=== PATIENT | male | born 1975 | race African-American/Black ===

== ENCOUNTER 2020-11-24 14:33 | Emergency (ER) | payer OTHER ==
[2020-11-24] MEDS ORDERED: Furosemide 40 MG/4 ML VIAL ONE (16:49)
[2020-11-24] MEDS ORDERED: Aspirin Chewable 81 MG TAB ONE (16:49)
[2020-11-24 17:29] LABS: #Eosinphils 0.1 10x3/uL (0.0-0.5); #Monocytes 0.6 10x3/uL (0.0-1.1); #Neutrophils 2.4 10x3/uL (1.5-8.4); %Basophils 0.4 % (0.0-2.0); %Eosinophils 2.6 % (0.0-6.0); %Monocytes 11.7 % (0.0-10.0); %Neutrophils 47.9 % (40.0-75.0); Hemoglobin 13.1 g/dL (13.5-17.5); Mean Corpuscular Hemoglobin 27.8 pg (27.0-33.0); Mean Platelet Volume 10.2 fl (7.4-10.4); Platelet Count 180 10x3/uL (150-450); RBC Distribution Width 12.5 % (11.5-14.5); Red Blood Cell (RBC) Count 4.71 10x6/uL (4.32-5.72)
[2020-11-24 17:44] LABS: ALT (SGPT) 16 U/L (8-55); AST (SGOT) 16 U/L (5-34); Albumin 2.1 g/dL (3.5-5.0); Alkaline Phosphatase 80 U/L (40-110); Anion Gap 9 mmol/L (10-20); BUN (Urea Nitrogen) 11 mg/dL (8.9-20.6); Bilirubin, Total 0.1 mg/dL (0.2-1.2); CK (CPK) 153 U/L (30-200); Calc. Creatinine Clearance 0 mL/min (70-130); Carbon Dioxide 24 mmol/L (22-29); Chloride 110 mmol/L (98-107); Globulin 3.8 g/dL (2.4-3.5); Glucose 85 mg/dL (70-105); Potassium 4.1 mmol/L (3.5-5.1); Protein, Total 5.9 g/dL (6.0-8.3); Sodium 139 mmol/L (136-145)
[2020-11-24] MEDS ORDERED: Ketorolac Tromethamine 30 MG/ML VIAL ONE (18:05)
== END 2020-11-24 18:11 ==
LOC: CSHERS 14:33
DX: R60.0 Localized edema (principal); E03.9 Hypothyroidism, unspecified; E78.5 Hyperlipidemia, unspecified; I10 Essential (primary) hypertension; Z87.891 Personal history of nicotine dependence; Z79.82 Long term (current) use of aspirin; Z79.899 Other long term (current) drug therapy
CPT/HCPCS: 71045; 80053; 82550; 83880; 84484; 85025; 93005; 93970; 96374; 96375; J1885; J1940

== ENCOUNTER 2020-12-10 03:27 | Observation (INO) | payer OTHER ==
[2020-12-10 04:12] LABS: #Eosinphils 0.1 10x3/uL (0.0-0.5); #Monocytes 0.4 10x3/uL (0.0-1.1); #Neutrophils 3.3 10x3/uL (1.5-8.4); %Basophils 0.4 % (0.0-2.0); %Lymphocytes 24.7 % (18.0-47.0); %Monocytes 7.4 % (0.0-10.0); %Neutrophils 65.3 % (40.0-75.0); Hemoglobin 13.6 g/dL (13.5-17.5); Mean Corpuscular HGB CONC 31.3 g/dL (32.0-36.0); Mean Corpuscular Hemoglobin 27.8 pg (27.0-33.0); Mean Corpuscular Volume 88.8 fl (81.2-95.1); Mean Platelet Volume 11.6 fl (7.4-10.4); Platelet Count 171 10x3/uL (150-450); Red Blood Cell (RBC) Count 4.89 10x6/uL (4.32-5.72)
[2020-12-10 04:19] LABS: ALT (SGPT) 10 U/L (8-55); AST (SGOT) 12 U/L (5-34); Albumin 2.1 g/dL (3.5-5.0); Alkaline Phosphatase 82 U/L (40-110); Anion Gap 12 mmol/L (10-20); BUN (Urea Nitrogen) 8 mg/dL (8.9-20.6); Bilirubin, Total 0.1 mg/dL (0.2-1.2); Calc. Creatinine Clearance 0 mL/min (70-130); Calcium 8.2 mg/dL (7.8-10.44); Carbon Dioxide 25 mmol/L (22-29); Chloride 108 mmol/L (98-107); Globulin 3.8 g/dL (2.4-3.5); Glucose 100 mg/dL (70-105); Potassium 4.8 mmol/L (3.5-5.1); Protein, Total 5.9 g/dL (6.0-8.3); Sodium 140 mmol/L (136-145)
[2020-12-10 04:49] LABS: INR-International Normal Ratio 1.4; PTT 26.6 sec (22.0-33.0); Prothrombin Time 14.9 sec (9.5-12.1)
[2020-12-10] MEDS ORDERED: Acetaminophen 500 MG TAB ONE (07:35)
[2020-12-10] MEDS ORDERED: Ondansetron ODT 4 MG TAB PO PRN (13:37)
[2020-12-10 15:55] VITALS: BMI 35.3
[2020-12-10] MEDS ORDERED: Atorvastatin Calcium 20 MG TAB PO SCH (21:00)
[2020-12-10] MEDS ORDERED: ENOXAPARIN SODIUM 150 MG/ML SQ SCH (21:00)
[2020-12-10] MEDS: levETIRAcetam 500 MG TAB PO SCH (21:42)
[2020-12-10] MEDS: Atorvastatin Calcium 40 MG TAB PO SCH (21:42)
[2020-12-10] MEDS: Famotidine 20 MG TAB PO SCH (21:42)
[2020-12-10] MEDS: Docusate 100 MG CAP PO SCH (21:42)
[2020-12-10] MEDS ORDERED: Enoxaparin Sodium 120 MG/0.8 ML SYRINGE SC SCH (23:59)
[2020-12-10] MEDS ORDERED: Furosemide 20 MG/2 ML VIAL SLOW IVP SCH (23:59)
[2020-12-11 07:14] LABS: #Eosinphils 0.1 10x3/uL (0.0-0.5); #Monocytes 0.4 10x3/uL (0.0-1.1); #Neutrophils 2.3 10x3/uL (1.5-8.4); %Basophils 0.2 % (0.0-2.0); %Eosinophils 2.5 % (0.0-6.0); %Lymphocytes 35.8 % (18.0-47.0); %Monocytes 8.8 % (0.0-10.0); %Neutrophils 52.2 % (40.0-75.0); Hemoglobin 13.4 g/dL (13.5-17.5); Mean Corpuscular HGB CONC 31.3 g/dL (32.0-36.0); Mean Corpuscular Hemoglobin 27.5 pg (27.0-33.0); Mean Corpuscular Volume 87.9 fl (81.2-95.1); Mean Platelet Volume 11.6 fl (7.4-10.4); Platelet Count 135 10x3/uL (150-450); Red Blood Cell (RBC) Count 4.87 10x6/uL (4.32-5.72); White Blood Cell (WBC) Count 4.3 10x3/uL (3.5-10.5)
[2020-12-11 07:42] LABS: Anion Gap 13 mmol/L (10-20); BUN (Urea Nitrogen) 13 mg/dL (8.9-20.6); Calc. Creatinine Clearance 139 mL/min (70-130); Calcium 8.2 mg/dL (7.8-10.44); Carbon Dioxide 22 mmol/L (22-29); Cardiac Risk 4.1 (Less than 4.5); Chloride 108 mmol/L (98-107); Cholesterol 229 mg/dl (< 200 Desired); Glucose 101 mg/dL (70-105); HDL Cholesterol 56 mg/dL (>60 Neg Risk); LDL Cholesterol, Calculated 154 mg/dL; Potassium 4.2 mmol/L (3.5-5.1); Sodium 139 mmol/L (136-145); Triglycerides 93 mg/dL (Less than 150)
[2020-12-11] MEDS ORDERED: Enoxaparin Sodium 40 MG/0.4 ML SYRINGE SC SCH (09:00)
[2020-12-11] MEDS: Docusate 100 MG CAP PO SCH ×2 (10:01→21:37)
[2020-12-11] MEDS: Famotidine 20 MG TAB PO SCH ×2 (10:01→21:37)
[2020-12-11] MEDS: levETIRAcetam 500 MG TAB PO SCH ×2 (10:01→21:37)
[2020-12-11] MEDS: Enoxaparin Sodium 120 MG/0.8 ML SYRINGE SC SCH ×2 (10:02→22:33)
[2020-12-11] MEDS: Acetaminophen 325 MG TAB PO PRN (10:02)
[2020-12-11] MEDS: Aspirin 81 mg Enteric Coated Tablet PO SCH (10:02)
[2020-12-11 13:57] LABS: SARS-CoV-2 PCR by NAA DETECTED (NotDetected)
[2020-12-11 14:16] LABS: Hemoglobin A1c 6.3 % (4.0-6.0)
[2020-12-11] MEDS: Atorvastatin Calcium 40 MG TAB PO SCH (21:37)
[2020-12-12] MEDS: Acetaminophen 325 MG TAB PO PRN (06:13)
[2020-12-12] MEDS: Enoxaparin Sodium 120 MG/0.8 ML SYRINGE SC SCH (09:20)
[2020-12-12] MEDS: Famotidine 20 MG TAB PO SCH (09:21)
[2020-12-12] MEDS: Aspirin 81 mg Enteric Coated Tablet PO SCH (09:21)
[2020-12-12] MEDS: Docusate 100 MG CAP PO SCH (09:21)
[2020-12-12] MEDS: levETIRAcetam 500 MG TAB PO SCH (09:21)
[2020-12-12 14:52] VITALS: BP 120/78; TEMP 97.6
== END 2020-12-12 12:15 ==
LOC: CSHERS 03:27 → CSHTELE 13:37 → UNDOADMOB 14:34 → CSHTELE 14:34 → INTOOBSV 14:34
PROVIDERS: ADMIT Family Medicine; ATTEND Family Medicine
DX: I69.934 Monoplegia of upper limb following unspecified cerebrovascular disease affecting left non-dominant side (principal); U07.1 COVID-19; G40.909 Epilepsy, unspecified, not intractable, without status epilepticus; Z86.711 Personal history of pulmonary embolism; Z86.718 Personal history of other venous thrombosis and embolism; Z79.899 Other long term (current) drug therapy; Z79.01 Long term (current) use of anticoagulants
CPT/HCPCS: 36415; 36416; 70450; 70551; 71045; 80048; 80053; 80061; 83036; 83880; 84443; 84484; 85025; 85610; 85730; 87635; 93005; 93306; 93880; 96372; 96374; G0378; J1650; J1940; U0003; U0005

== ENCOUNTER 2021-06-19 15:54 | Inpatient (IN) | payer OTHER ==
[2021-06-19] MEDS ORDERED: Ondansetron PF 4 MG/2 ML Vial ONE (16:21)
[2021-06-19 16:38] LABS: #Eosinphils 0.2 10x3/uL (0.0-0.5); #Monocytes 0.3 10x3/uL (0.0-1.1); #Neutrophils 1.8 10x3/uL (1.5-8.4); %Basophils 0.6 % (0.0-2.0); %Eosinophils 5.5 % (0.0-6.0); %Lymphocytes 31.8 % (18.0-47.0); %Monocytes 8.8 % (0.0-10.0); Mean Corpuscular HGB CONC 30.8 g/dL (32.0-36.0); Mean Corpuscular Hemoglobin 27.7 pg (27.0-33.0); Mean Corpuscular Volume 90.1 fl (81.2-95.1); Mean Platelet Volume 11.9 fl (7.4-10.4); Platelet Count 182 10x3/uL (150-450); RBC Distribution Width 13.6 % (11.5-14.5); Red Blood Cell (RBC) Count 5.05 10x6/uL (4.32-5.72); White Blood Cell (WBC) Count 3.3 10x3/uL (3.5-10.5)
[2021-06-19 16:53] LABS: ALT (SGPT) 36 U/L (8-55); AST (SGOT) 66 U/L (5-34); Albumin 2.7 g/dL (3.5-5.0); Alkaline Phosphatase 86 U/L (40-110); Anion Gap 10 mmol/L (10-20); BUN (Urea Nitrogen) 12 mg/dL (8.9-20.6); Bilirubin, Total 0.2 mg/dL (0.2-1.2); Calc. Creatinine Clearance 0 mL/min (70-130); Calcium 8.5 mg/dL (7.8-10.44); Carbon Dioxide 26 mmol/L (22-29); Chloride 106 mmol/L (98-107); Globulin 4.4 g/dL (2.4-3.5); Glucose 83 mg/dL (70-105); Potassium 4.2 mmol/L (3.5-5.1); Protein, Total 7.1 g/dL (6.0-8.3); Sodium 138 mmol/L (136-145)
[2021-06-19 16:57] LABS: PTT 37.9 sec (22.0-33.0); Prothrombin Time 46.3 sec (9.5-12.1)
[2021-06-19 17:00] LABS: INR-International Normal Ratio 4.5
[2021-06-19 22:20] LABS: SARS-CoV-2 NAA Rapid Test Not Detected (NotDetected)
[2021-06-19] MEDS ORDERED: Senokot S 8.6-50 MG TAB PO PRN (23:13)
[2021-06-19] MEDS ORDERED: hydrALAZINE 20 MG/ML VIAL SLOW IVP PRN (23:13)
[2021-06-19] MEDS ORDERED: Ondansetron PF 4 MG/2 ML Vial IVP PRN (23:13)
[2021-06-19] MEDS ORDERED: Acetaminophen 325 MG TAB PO PRN (23:13)
[2021-06-19] MEDS ORDERED: Calcium Carbonate 500 MG ChewTAB PO PRN (23:13)
[2021-06-19] MEDS ORDERED: levETIRAcetam 500 MG TAB PO SCH (23:30)
[2021-06-20 00:39] VITALS: BMI 38.0
[2021-06-20 04:42] LABS: #Eosinphils 0.2 10x3/uL (0.0-0.5); #Monocytes 0.4 10x3/uL (0.0-1.1); #Neutrophils 1.8 10x3/uL (1.5-8.4); %Basophils 0.3 % (0.0-2.0); %Eosinophils 4.9 % (0.0-6.0); %Lymphocytes 33.7 % (18.0-47.0); %Monocytes 10.9 % (0.0-10.0); %Neutrophils 49.9 % (40.0-75.0); Hemoglobin 12.9 g/dL (13.5-17.5); Mean Corpuscular HGB CONC 31.7 g/dL (32.0-36.0); Mean Corpuscular Hemoglobin 27.9 pg (27.0-33.0); Mean Corpuscular Volume 88.1 fl (81.2-95.1); Mean Platelet Volume 11.6 fl (7.4-10.4); Platelet Count 184 10x3/uL (150-450); RBC Distribution Width 13.7 % (11.5-14.5); Red Blood Cell (RBC) Count 4.62 10x6/uL (4.32-5.72); White Blood Cell (WBC) Count 3.7 10x3/uL (3.5-10.5)
[2021-06-20 05:01] LABS: Anion Gap 12 mmol/L (10-20); BUN (Urea Nitrogen) 14 mg/dL (8.9-20.6); Calc. Creatinine Clearance 130 mL/min (70-130); Calcium 8.3 mg/dL (7.8-10.44); Carbon Dioxide 23 mmol/L (22-29); Chloride 109 mmol/L (98-107); Cholesterol 165 mg/dl (< 200 Desired); Glucose 99 mg/dL (70-105); HDL Cholesterol 33 mg/dL (>60 Neg Risk); LDL Cholesterol, Calculated 97 mg/dL; Potassium 4.1 mmol/L (3.5-5.1); Sodium 140 mmol/L (136-145); Triglycerides 177 mg/dL (Less than 150)
[2021-06-20 05:07] LABS: Prothrombin Time 44.2 sec (9.5-12.1)
[2021-06-20 05:15] LABS: INR-International Normal Ratio 4.3
[2021-06-20] MEDS: Clopidogrel Bisulfate 75 MG TAB PO SCH (08:35)
[2021-06-20] MEDS: Furosemide 40 MG TAB PO SCH (08:35)
[2021-06-20] MEDS: Docusate 100 MG CAP PO SCH ×2 (08:35→20:08)
[2021-06-20] MEDS: levETIRAcetam 500 MG TAB PO SCH ×2 (08:35→20:08)
[2021-06-20] MEDS: Famotidine 20 MG TAB PO SCH ×2 (08:35→20:08)
[2021-06-20 15:47] LABS: INR-International Normal Ratio 2.9; PTT 36.9 sec (22.0-33.0); Prothrombin Time 30.4 sec (9.5-12.1)
[2021-06-20] MEDS ORDERED: Atorvastatin Calcium 40 MG TAB PO SCH ×2 (21:00)
[2021-06-21] MEDS: Furosemide 40 MG TAB PO SCH (08:26)
[2021-06-21] MEDS: Clopidogrel Bisulfate 75 MG TAB PO SCH (08:26)
[2021-06-21] MEDS: Docusate 100 MG CAP PO SCH (08:26)
[2021-06-21] MEDS: levETIRAcetam 500 MG TAB PO SCH (08:26)
[2021-06-21] MEDS: Famotidine 20 MG TAB PO SCH (08:26)
[2021-06-21] MEDS ORDERED: Aspirin 81 mg Enteric Coated Tablet PO SCH (09:00)
[2021-06-21 12:36] VITALS: BP 150/71; TEMP 97.5
== END 2021-06-21 17:30 | disposition home or self-care (01) | DRG 948 ==
LOC: CSHERS 15:54 → CSHTELE 15:55 → OBSVTOIN 06-20 18:44
PROVIDERS: ADMIT Student in an Organized Health Care Education/Training Program; ATTEND Internal Medicine
DX: R53.1 Weakness (principal); I69.954 Hemiplegia and hemiparesis following unspecified cerebrovascular disease affecting left non-dominant side; E78.2 Mixed hyperlipidemia; Z20.822 Contact with and (suspected) exposure to COVID-19; Z86.711 Personal history of pulmonary embolism; Z86.718 Personal history of other venous thrombosis and embolism; Z91.010 Allergy to peanuts; Z79.01 Long term (current) use of anticoagulants; Z79.82 Long term (current) use of aspirin; Z79.899 Other long term (current) drug therapy; G40.909 Epilepsy, unspecified, not intractable, without status epilepticus; Z83.3 Family history of diabetes mellitus; Z82.49 Family history of ischemic heart disease and other diseases of the circulatory system; Z87.891 Personal history of nicotine dependence; N18.2 Chronic kidney disease, stage 2 (mild); M79.89 Other specified soft tissue disorders
CPT/HCPCS: 36415; 70450; 70496; 70498; 70551; 80048; 80053; 80061; 84443; 84484; 85025; 85610; 85730; 86850; 86900; 86901; 93005; 93306; 93880; 96374; G0378; J2405; U0002

== ENCOUNTER 2021-08-27 11:34 | Emergency (ER) | payer OTHER ==
[2021-08-27 12:53] LABS: Hemoglobin 12.5 g/dL (13.5-17.5); MDiff Complete? YES; Mean Corpuscular HGB CONC 30.9 g/dL (32.0-36.0); Mean Corpuscular Volume 90.4 fl (81.2-95.1); Mean Platelet Volume 11.3 fl (7.4-10.4); Platelet Count 174 10x3/uL (150-450); RBC Distribution Width 13.5 % (11.5-14.5); Red Blood Cell (RBC) Count 4.47 10x6/uL (4.32-5.72); White Blood Cell (WBC) Count 3.6 10x3/uL (3.5-10.5)
[2021-08-27 12:59] LABS: INR-International Normal Ratio 1.5; PTT 26.9 sec (22.0-33.0); Prothrombin Time 15.9 sec (9.5-12.1)
[2021-08-27 13:07] LABS: ALT (SGPT) 26 U/L (8-55); AST (SGOT) 56 U/L (5-34); Alkaline Phosphatase 77 U/L (40-110); Anion Gap 10 mmol/L (10-20); BUN (Urea Nitrogen) 12 mg/dL (8.9-20.6); Bilirubin, Total 0.2 mg/dL (0.2-1.2); Calc. Creatinine Clearance 0 mL/min (70-130); Calcium 7.7 mg/dL (7.8-10.44); Carbon Dioxide 26 mmol/L (22-29); Chloride 111 mmol/L (98-107); Globulin 3.7 g/dL (2.4-3.5); Glucose 78 mg/dL (70-105); Protein, Total 5.7 g/dL (6.0-8.3); Sodium 143 mmol/L (136-145)
[2021-08-27] MEDS ORDERED: Warfarin Sodium 5 MG TAB PO SCH (13:30)
[2021-08-27 13:46] LABS: Eosinophils 2 % (0-10); Lymphocytes 37 % (21-51); Monocytes 12 % (0-10); Neutrophil 45 % (42-75); Reactive Lymphocytes 4 % (0-10)
[2021-08-27 13:47] LABS: Platelet Morphology Comment Appears Adequate
== END 2021-08-27 13:46 ==
LOC: CSHERS 11:34
DX: R79.1 Abnormal coagulation profile (principal); M79.89 Other specified soft tissue disorders; E03.9 Hypothyroidism, unspecified; E78.5 Hyperlipidemia, unspecified; I05.9 Rheumatic mitral valve disease, unspecified; I10 Essential (primary) hypertension; Z86.711 Personal history of pulmonary embolism; Z86.718 Personal history of other venous thrombosis and embolism; Z87.891 Personal history of nicotine dependence; Z79.82 Long term (current) use of aspirin; Z79.01 Long term (current) use of anticoagulants; Z79.899 Other long term (current) drug therapy
CPT/HCPCS: 80053; 85025; 85610; 85730; 99283

== ENCOUNTER 2021-12-24 05:45 | Emergency (ER) | payer OTHER ==
[2021-12-24] MEDS ORDERED: Metoprolol Tartrate 25 MG TAB ONE (06:32)
[2021-12-24 07:21] LABS: #Monocytes 0.3 10x3/uL (0.0-1.1); #Neutrophils 5.9 10x3/uL (1.5-8.4); %Basophils 0.1 % (0.0-2.0); %Eosinophils 0.4 % (0.0-6.0); %Monocytes 3.8 % (0.0-10.0); %Neutrophils 83.2 % (40.0-75.0); Hemoglobin 11.8 g/dL (13.5-17.5); Mean Corpuscular HGB CONC 31.4 g/dL (32.0-36.0); Mean Corpuscular Hemoglobin 28.7 pg (27.0-33.0); Mean Corpuscular Volume 91.5 fl (81.2-95.1); Mean Platelet Volume 9.7 fl (7.4-10.4); Platelet Count 267 10x3/uL (150-450); RBC Distribution Width 14.8 % (11.5-14.5); Red Blood Cell (RBC) Count 4.11 10x6/uL (4.32-5.72); White Blood Cell (WBC) Count 7.1 10x3/uL (3.5-10.5)
[2021-12-24 07:34] LABS: ALT (SGPT) 20 U/L (8-55); AST (SGOT) 16 U/L (5-34); Albumin 1.9 g/dL (3.5-5.0); Alkaline Phosphatase 68 U/L (40-110); Anion Gap 16 mmol/L (10-20); BUN (Urea Nitrogen) 12 mg/dL (8.9-20.6); Bilirubin, Total 0.2 mg/dL (0.2-1.2); Calc. Creatinine Clearance 0 mL/min (70-130); Calcium 7.6 mg/dL (7.8-10.44); Carbon Dioxide 22 mmol/L (22-29); Chloride 106 mmol/L (98-107); Globulin 2.2 g/dL (2.4-3.5); Glucose 176 mg/dL (70-105); INR-International Normal Ratio 0.9; PTT 20.5 sec (22.0-33.0); Potassium 4.1 mmol/L (3.5-5.1); Protein, Total 4.1 g/dL (6.0-8.3); Prothrombin Time 10.2 sec (9.5-12.1); Sodium 140 mmol/L (136-145)
[2021-12-24 08:25] LABS: SARS-CoV-2 NAA Rapid Test Not Detected (NotDetected)
[2021-12-24] MEDS ORDERED: Ondansetron PF 4 MG/2 ML Vial ONE (08:39)
[2021-12-24] MEDS ORDERED: Iopamidol 370 76% 100 ML VIAL ONE (10:24)
[2021-12-24] MEDS ORDERED: Enoxaparin Sodium 30 MG/0.3 ML SYRINGE SC SCH (15:30)
[2021-12-24] MEDS ORDERED: Enoxaparin Sodium 100 MG/ML SYRINGE SC SCH (15:30)
[2021-12-24] MEDS ORDERED: Enoxaparin Sodium 100 MG/ML SYRINGE ONE (16:00)
[2021-12-24] MEDS ORDERED: Enoxaparin Sodium 30 MG/0.3 ML SYRINGE ONE (16:00)
== END 2021-12-24 21:32 | disposition short-term general hospital (02) ==
LOC: CSHERS 05:45
DX: I82.511 Chronic embolism and thrombosis of right femoral vein (principal); I82.531 Chronic embolism and thrombosis of right popliteal vein; R60.0 Localized edema; E03.9 Hypothyroidism, unspecified; E78.5 Hyperlipidemia, unspecified; M32.14 Glomerular disease in systemic lupus erythematosus; Z20.822 Contact with and (suspected) exposure to COVID-19; Z86.711 Personal history of pulmonary embolism; Z87.891 Personal history of nicotine dependence; Z79.01 Long term (current) use of anticoagulants; Z79.899 Other long term (current) drug therapy
CPT/HCPCS: 36415; 71045; 71275; 80053; 84484; 85025; 85610; 85730; 93005; 96372; 96374; J1650; J2405; Q9967; U0002

== ENCOUNTER 2022-01-09 00:12 | Emergency (ER) | payer OTHER ==
[2022-01-09] MEDS ORDERED: Morphine 2 MG/ML VIAL ONE (01:06)
[2022-01-09 01:20] LABS: SARS-CoV-2 NAA Rapid Test Not Detected (NotDetected)
[2022-01-09 01:28] LABS: INR-International Normal Ratio 1.1; Prothrombin Time 11.7 sec (9.5-12.1)
[2022-01-09 01:33] LABS: ALT (SGPT) 21 U/L (8-55); AST (SGOT) 14 U/L (5-34); Albumin 2.1 g/dL (3.5-5.0); Alkaline Phosphatase 48 U/L (40-110); Anion Gap 14 mmol/L (10-20); BUN (Urea Nitrogen) 21 mg/dL (8.9-20.6); Bilirubin, Total 0.3 mg/dL (0.2-1.2); CK (CPK) 147 U/L (30-200); Calc. Creatinine Clearance 0 mL/min (70-130); Calcium 8.3 mg/dL (7.8-10.44); Carbon Dioxide 25 mmol/L (22-29); Chloride 103 mmol/L (98-107); Globulin 2.8 g/dL (2.4-3.5); Glucose 120 mg/dL (70-105); Potassium 3.5 mmol/L (3.5-5.1); Protein, Total 4.9 g/dL (6.0-8.3); Sodium 138 mmol/L (136-145)
[2022-01-09 01:35] LABS: #Eosinphils 0.1 10x3/uL (0.0-0.5); #Monocytes 0.8 10x3/uL (0.0-1.1); #Neutrophils 9.3 10x3/uL (1.5-8.4); %Basophils 0.2 % (0.0-2.0); %Eosinophils 0.5 % (0.0-6.0); %Lymphocytes 11.9 % (18.0-47.0); %Monocytes 6.7 % (0.0-10.0); %Neutrophils 79.7 % (40.0-75.0); Hemoglobin 11.7 g/dL (13.5-17.5); Mean Corpuscular HGB CONC 33.2 g/dL (32.0-36.0); Mean Corpuscular Hemoglobin 29.3 pg (27.0-33.0); Mean Corpuscular Volume 88.2 fl (81.2-95.1); Mean Platelet Volume 10.3 fl (7.4-10.4); Platelet Count 215 10x3/uL (150-450); RBC Distribution Width 14.4 % (11.5-14.5); Red Blood Cell (RBC) Count 3.99 10x6/uL (4.32-5.72); White Blood Cell (WBC) Count 11.7 10x3/uL (3.5-10.5)
[2022-01-09] MEDS ORDERED: Enoxaparin Sodium 60 MG/0.6 ML SYRINGE ONE (02:32)
[2022-01-09] MEDS ORDERED: Warfarin Sodium 5 MG TAB PO SCH (02:45)
[2022-01-09] MEDS ORDERED: Spironolactone 25 MG TAB PO SCH (02:45)
== END 2022-01-09 02:55 ==
LOC: CSHERS 00:12
DX: L03.116 Cellulitis of left lower limb (principal); R60.0 Localized edema; D68.8 Other specified coagulation defects; E03.9 Hypothyroidism, unspecified; E78.5 Hyperlipidemia, unspecified; Z20.822 Contact with and (suspected) exposure to COVID-19; Z87.891 Personal history of nicotine dependence; Z86.718 Personal history of other venous thrombosis and embolism; Z86.711 Personal history of pulmonary embolism; Z79.01 Long term (current) use of anticoagulants; Z79.899 Other long term (current) drug therapy
CPT/HCPCS: 36415; 71045; 80053; 82550; 83605; 83880; 84484; 85025; 85610; 93005; 96372; 96374; J1650; J2270; U0002

== ENCOUNTER 2022-01-13 17:20 | Emergency (ER) | payer OTHER ==
[2022-01-13 18:46] LABS: #Eosinphils 0.1 10x3/uL (0.0-0.5); #Monocytes 0.6 10x3/uL (0.0-1.1); #Neutrophils 11.3 10x3/uL (1.5-8.4); %Basophils 0.2 % (0.0-2.0); %Eosinophils 0.5 % (0.0-6.0); %Lymphocytes 9.3 % (18.0-47.0); %Monocytes 4.7 % (0.0-10.0); %Neutrophils 83.9 % (40.0-75.0); Hemoglobin 13.5 g/dL (13.5-17.5); Mean Corpuscular HGB CONC 31.1 g/dL (32.0-36.0); Mean Corpuscular Hemoglobin 28.6 pg (27.0-33.0); Mean Corpuscular Volume 91.9 fl (81.2-95.1); Mean Platelet Volume 10.1 fl (7.4-10.4); Platelet Count 300 10x3/uL (150-450); RBC Distribution Width 14.3 % (11.5-14.5); Red Blood Cell (RBC) Count 4.72 10x6/uL (4.32-5.72); White Blood Cell (WBC) Count 13.5 10x3/uL (3.5-10.5)
[2022-01-13 18:58] LABS: INR-International Normal Ratio 2.8; PTT 35.6 sec (22.0-33.0)
[2022-01-13 19:05] LABS: ALT (SGPT) 23 U/L (8-55); AST (SGOT) 38 U/L (5-34); Albumin 2.3 g/dL (3.5-5.0); Alkaline Phosphatase 63 U/L (40-110); Anion Gap 13 mmol/L (10-20); BUN (Urea Nitrogen) 26 mg/dL (8.9-20.6); Bilirubin, Total 0.2 mg/dL (0.2-1.2); Calc. Creatinine Clearance 0 mL/min (70-130); Calcium 8.6 mg/dL (7.8-10.44); Carbon Dioxide 25 mmol/L (22-29); Chloride 102 mmol/L (98-107); Globulin 3.9 g/dL (2.4-3.5); Glucose 108 mg/dL (70-105); Potassium 4.4 mmol/L (3.5-5.1); Protein, Total 6.2 g/dL (6.0-8.3); Sodium 136 mmol/L (136-145)
[2022-01-13] MEDS ORDERED: Cefepime 2 GM VIAL ONE (19:14)
[2022-01-13] MEDS ORDERED: Morphine 4 MG/ML VIAL ONE ×2 (19:28→21:11)
[2022-01-13 20:43] LABS: SARS-CoV-2 NAA Rapid Test Not Detected (NotDetected)
[2022-01-14] MEDS ORDERED: Morphine 4 MG/ML VIAL ONE (01:31)
[2022-01-14] MEDS ORDERED: Cefepime 2 GM VIAL ONE (01:57)
== END 2022-01-14 03:29 | disposition short-term general hospital (02) ==
LOC: EEVIPCON 17:20 → CSHERS 17:20
DX: L03.116 Cellulitis of left lower limb (principal); Z20.822 Contact with and (suspected) exposure to COVID-19; E03.9 Hypothyroidism, unspecified; E78.5 Hyperlipidemia, unspecified; Z87.891 Personal history of nicotine dependence; Z79.899 Other long term (current) drug therapy
CPT/HCPCS: 36415; 71045; 80053; 83605; 84484; 85025; 85610; 85730; 87040; 93005; 96365; 96375; 96376; J0692; J2270; J3370; U0002

== ENCOUNTER 2022-03-02 02:00 | Inpatient (IN) | payer OTHER ==
[2022-03-02] MEDS ORDERED: Cefepime 2 GM VIAL ONE (02:58)
[2022-03-02] MEDS ORDERED: Ondansetron PF 4 MG/2 ML Vial ONE ×2 (02:58→10:12)
[2022-03-02 03:10] LABS: Hemoglobin 10.7 g/dL (13.5-17.5); Mean Corpuscular HGB CONC 31.2 g/dL (32.0-36.0); Mean Corpuscular Hemoglobin 28.8 pg (27.0-33.0); Mean Corpuscular Volume 92.2 fl (81.2-95.1); Mean Platelet Volume 9.4 fl (7.4-10.4); Platelet Count 235 10x3/uL (150-450); RBC Distribution Width 14.5 % (11.5-14.5); Red Blood Cell (RBC) Count 3.72 10x6/uL (4.32-5.72); White Blood Cell (WBC) Count 7.1 10x3/uL (3.5-10.5)
[2022-03-02 03:11] LABS: MDiff Complete? YES
[2022-03-02 03:16] LABS: ALT (SGPT) 18 U/L (8-55); AST (SGOT) 15 U/L (5-34); Albumin 2.7 g/dL (3.5-5.0); Alkaline Phosphatase 94 U/L (40-110); Anion Gap 16 mmol/L (10-20); BUN (Urea Nitrogen) 18 mg/dL (8.9-20.6); Bilirubin, Total 0.3 mg/dL (0.2-1.2); Calc. Creatinine Clearance 0 mL/min (70-130); Calcium 8.4 mg/dL (7.8-10.44); Carbon Dioxide 30 mmol/L (22-29); Chloride 98 mmol/L (98-107); Estimated GFR 62; Globulin 2.6 g/dL (2.4-3.5); Glucose 176 mg/dL (70-105); Potassium 3.4 mmol/L (3.5-5.1); Protein, Total 5.3 g/dL (6.0-8.3); Sodium 141 mmol/L (136-145)
[2022-03-02 03:21] LABS: Prothrombin Time 10.9 sec (9.5-12.1)
[2022-03-02 03:32] LABS: Band 11 % (5-11); Eosinophils 1 % (0-10); Lymphocytes 25 % (21-51); Monocytes 6 % (0-10); Neutrophil 57 % (42-75)
[2022-03-02] MEDS ORDERED: Morphine 4 MG/ML VIAL ONE (03:33)
[2022-03-02 03:56] LABS: SARS-CoV-2 NAA Rapid Test Not Detected (NotDetected)
[2022-03-02] MEDS ORDERED: Enoxaparin Sodium 30 MG/0.3 ML SYRINGE ONE (04:11)
[2022-03-02] MEDS ORDERED: Enoxaparin Sodium 100 MG/ML SYRINGE ONE (04:11)
[2022-03-02] MEDS ORDERED: Promethazine HCl 25 MG/ML VIAL ONE (04:12)
[2022-03-02] MEDS ORDERED: Acetaminophen 500 MG TAB ONE (04:54)
[2022-03-02 05:36] LABS: Lactic Acid 4.9 mmol/L (0.5-2.2)
[2022-03-02] MEDS ORDERED: Ketorolac Tromethamine 30 MG/ML VIAL ONE (05:45)
[2022-03-02] MEDS ORDERED: HumaLOG 300 UNITS/3 ML VIAL SC PRN (09:11)
[2022-03-02] MEDS ORDERED: Acetaminophen 650 MG Suppository PR PRN (09:11)
[2022-03-02] MEDS ORDERED: Guaifenesin DM 100-10/5 ML UDCUP PO PRN (09:11)
[2022-03-02] MEDS ORDERED: Dextrose 50% Abboject 50 ML SYRINGE SLOW IVP PRN (09:11)
[2022-03-02] MEDS ORDERED: Dextrose 5% in Water 1,000 ML IV PRN (09:31)
[2022-03-02] MEDS ORDERED: Simethicone Chewable 80 MG TAB PO PRN (09:47)
[2022-03-02] MEDS: HYDROcodone/Acetaminophen 10/325 mg Tablet PO PRN ×2 (10:14→14:48)
[2022-03-02] MEDS ORDERED: HYDROcodone/Acetaminophen 10/325 mg Tablet ONE ×2 (10:15→14:48)
[2022-03-02] MEDS: Ondansetron PF 4 MG/2 ML Vial IVP PRN ×2 (10:16→17:57)
[2022-03-02] MEDS ORDERED: Vancomycin HCl 1 GM in Sodium Chloride 0.9% 250 ML 250 ML IVPB SCH (11:00)
[2022-03-02] MEDS: Clindamycin/D5W 600 MG in Premix Bag 1 BAG IVPB SCH ×2 (11:45→18:20)
[2022-03-02 13:38] LABS: Lactic Acid 2.7 mmol/L (0.5-2.2)
[2022-03-02] MEDS ORDERED: Potassium Chloride 20 MEQ TAB PO SCH (14:00)
[2022-03-02] MEDS: Methocarbamol 500 MG TAB PO SCH ×3 (14:49→23:04)
[2022-03-02] MEDS: Bumetanide 1 MG TAB PO SCH ×2 (14:49→23:03)
[2022-03-02 16:30] VITALS: BMI 37.4
[2022-03-02] MEDS: NPH, Human Insulin Isophane 300 UNIT/3 ML VIAL SC SCH (17:54)
[2022-03-02] MEDS: Insulin Regular 300 UNITS/3 ML VIAL SC SCH (17:54)
[2022-03-02] MEDS: Warfarin Sodium 7.5 MG TAB PO SCH (17:55)
[2022-03-02] MEDS: Acetaminophen 325 MG TAB PO PRN (20:21)
[2022-03-02] MEDS: Atorvastatin Calcium 40 MG TAB PO SCH (20:21)
[2022-03-02] MEDS: Hydroxychloroquine Sulfate 200 MG TAB PO SCH (20:23)
[2022-03-02] MEDS: levETIRAcetam 500 MG TAB PO SCH (20:23)
[2022-03-02] MEDS: Mycophenolate 250 MG CAP PO SCH (20:23)
[2022-03-02] MEDS: Enoxaparin Sodium 120 MG/0.8 ML SYRINGE SC SCH (20:28)
[2022-03-02] MEDS ORDERED: Famotidine 20 MG TAB PO SCH (21:00)
[2022-03-02] MEDS ORDERED: Famotidine/PF 20 mg/2ml Vial SLOW IVP SCH (21:00)
[2022-03-02] MEDS ORDERED: Sodium Chloride 0.9% 1,000 ML IV SCH (21:45)
[2022-03-02] MEDS ORDERED: Sodium Chloride 0.9% 500 ML IV SCH (22:00)
[2022-03-02] MEDS ORDERED: Bumetanide 1 MG TAB PO SCH (22:00)
[2022-03-02] MEDS: Sodium Chloride 0.9% 1,000 ML IV SCH (22:30)
[2022-03-03] MEDS: Vancomycin HCl 1 GM in Sodium Chloride 0.9% 250 ML 250 ML IVPB SCH ×2 (00:52→13:22)
[2022-03-03] MEDS: Acetaminophen 325 MG TAB PO PRN ×4 (02:46→21:47)
[2022-03-03] MEDS: Clindamycin/D5W 600 MG in Premix Bag 1 BAG IVPB SCH ×2 (02:47→11:18)
[2022-03-03 05:06] LABS: INR-International Normal Ratio 1.3; Prothrombin Time 13.5 sec (9.5-12.1)
[2022-03-03 05:11] LABS: Anion Gap 15 mmol/L (10-20); BUN (Urea Nitrogen) 20 mg/dL (8.9-20.6); Calc. Creatinine Clearance 83 mL/min (70-130); Calcium 7.9 mg/dL (7.8-10.44); Carbon Dioxide 28 mmol/L (22-29); Chloride 99 mmol/L (98-107); Estimated GFR 46; Glucose 121 mg/dL (70-105); Magnesium 1.3 mg/dL (1.6-2.6); Potassium 3.5 mmol/L (3.5-5.1); Sodium 138 mmol/L (136-145)
[2022-03-03 05:34] LABS: Hemoglobin 9.5 g/dL (13.5-17.5); Mean Corpuscular HGB CONC 31.4 g/dL (32.0-36.0); Mean Corpuscular Hemoglobin 28.7 pg (27.0-33.0); Mean Corpuscular Volume 91.5 fl (81.2-95.1); Mean Platelet Volume 10.3 fl (7.4-10.4); Platelet Count 204 10x3/uL (150-450); RBC Distribution Width 14.5 % (11.5-14.5); Red Blood Cell (RBC) Count 3.31 10x6/uL (4.32-5.72); White Blood Cell (WBC) Count 7.8 10x3/uL (3.5-10.5)
[2022-03-03 05:39] LABS: MDiff Complete? YES
[2022-03-03 06:30] LABS: Band 20 % (5-11); Eosinophils 1 % (0-10); Lymphocytes 13 % (21-51); Monocytes 4 % (0-10); Neutrophil 60 % (42-75); Platelet Morphology Comment Appears Adequate; Reactive Lymphocytes 2 % (0-10)
[2022-03-03 06:31] LABS: RBC Morphology Normal
[2022-03-03] MEDS ORDERED: Furosemide 40 MG TAB PO SCH (07:30)
[2022-03-03] MEDS ORDERED: Magnesium Sulfate 4 GM in Sodium Chloride 0.9% 250 ML 250 ML IVPB ONE (07:38)
[2022-03-03] MEDS: Insulin Regular 300 UNITS/3 ML VIAL SC SCH ×2 (08:47→15:54)
[2022-03-03] MEDS: Magnesium 2 GM/50 ML(in water) 2 GM in Premix Bag 1 BAG IVPB SCH ×2 (08:47→10:22)
[2022-03-03] MEDS: NPH, Human Insulin Isophane 300 UNIT/3 ML VIAL SC SCH ×2 (08:47→17:49)
[2022-03-03] MEDS: levETIRAcetam 500 MG TAB PO SCH ×2 (08:48→21:47)
[2022-03-03] MEDS: predniSONE 20 MG TAB PO SCH (08:48)
[2022-03-03] MEDS: Mycophenolate 250 MG CAP PO SCH ×2 (08:48→21:46)
[2022-03-03] MEDS: HYDROcodone/Acetaminophen 10/325 mg Tablet PO PRN ×2 (08:48→15:54)
[2022-03-03] MEDS: Hydroxychloroquine Sulfate 200 MG TAB PO SCH ×2 (08:48→21:47)
[2022-03-03] MEDS: Methocarbamol 500 MG TAB PO SCH ×3 (08:48→23:00)
[2022-03-03] MEDS: Potassium Chloride 20 MEQ TAB PO SCH (08:49)
[2022-03-03] MEDS: Enoxaparin Sodium 120 MG/0.8 ML SYRINGE SC SCH ×2 (08:49→21:55)
[2022-03-03] MEDS: Furosemide 40 MG TAB PO SCH (08:51)
[2022-03-03] MEDS ORDERED: Bumetanide 1 MG TAB PO SCH (09:00)
[2022-03-03] MEDS ORDERED: levETIRAcetam 500 MG TAB PO SCH (09:00)
[2022-03-03] MEDS ORDERED: Potassium Chloride 20 MEQ TAB PO SCH (09:00)
[2022-03-03] MEDS ORDERED: Hydroxychloroquine Sulfate 200 MG TAB PO SCH (09:00)
[2022-03-03] MEDS ORDERED: METHOCARBAMOL 750 MG PO SCH (09:00)
[2022-03-03] MEDS ORDERED: MYCOPHENOLATE MOFETIL 500 MG PO SCH (09:00)
[2022-03-03] MEDS ORDERED: predniSONE 20 MG TAB PO SCH (09:00)
[2022-03-03] MEDS ORDERED: Lisinopril 5 MG TAB PO SCH (09:00)
[2022-03-03] MEDS ORDERED: Sodium Chloride 0.9% 500 ML IV SCH (10:30)
[2022-03-03] MEDS: Morphine 2 MG/ML VIAL SLOW IVP PRN ×3 (11:18→22:00)
[2022-03-03] MEDS: Cefepime 2 GM in Sodium Chloride 0.9% 100 ML IVPB SCH (14:09)
[2022-03-03 14:33] LABS: Magnesium 2.3 mg/dL (1.6-2.6); Potassium 4.2 mmol/L (3.5-5.1)
[2022-03-03] MEDS: Warfarin Sodium 7.5 MG TAB PO SCH (17:49)
[2022-03-03] MEDS: HumaLOG 300 UNITS/3 ML VIAL SC PRN (17:49)
[2022-03-03] MEDS ORDERED: Atorvastatin Calcium 40 MG TAB PO SCH (21:00)
[2022-03-03] MEDS: Atorvastatin Calcium 40 MG TAB PO SCH (21:46)
[2022-03-04] MEDS: Sodium Chloride 0.9% 1,000 ML IV SCH ×2 (01:00→21:58)
[2022-03-04] MEDS: Acetaminophen 325 MG TAB PO PRN ×4 (01:44→19:34)
[2022-03-04] MEDS: Cefepime 2 GM in Sodium Chloride 0.9% 100 ML IVPB SCH ×2 (01:44→14:12)
[2022-03-04 04:56] LABS: Hemoglobin 9.6 g/dL (13.5-17.5); Mean Corpuscular Hemoglobin 28.7 pg (27.0-33.0); Mean Corpuscular Volume 89.8 fl (81.2-95.1); Mean Platelet Volume 10.4 fl (7.4-10.4); Platelet Count 182 10x3/uL (150-450); RBC Distribution Width 14.4 % (11.5-14.5); Red Blood Cell (RBC) Count 3.34 10x6/uL (4.32-5.72); White Blood Cell (WBC) Count 11.6 10x3/uL (3.5-10.5)
[2022-03-04 05:00] LABS: INR-International Normal Ratio 1.4; Prothrombin Time 14.7 sec (9.5-12.1)
[2022-03-04 05:08] LABS: Anion Gap 13 mmol/L (10-20); BUN (Urea Nitrogen) 17 mg/dL (8.9-20.6); Calc. Creatinine Clearance 92 mL/min (70-130); Calcium 8.5 mg/dL (7.8-10.44); Carbon Dioxide 27 mmol/L (22-29); Chloride 102 mmol/L (98-107); Estimated GFR 52; Glucose 141 mg/dL (70-105); Potassium 4.1 mmol/L (3.5-5.1); Sodium 138 mmol/L (136-145)
[2022-03-04] MEDS: Morphine 2 MG/ML VIAL SLOW IVP PRN (05:27)
[2022-03-04 05:29] LABS: MDiff Complete? YES
[2022-03-04 05:31] LABS: Diff Comment (RBC Morph SCRN) NORMAL; Lymphocytes 9 % (21-51); Monocytes 8 % (0-10); Neutrophil 83 % (42-75); Platelet Morphology Comment Appears Adequate
[2022-03-04] MEDS: Ondansetron PF 4 MG/2 ML Vial IVP PRN (05:32)
[2022-03-04] MEDS: Insulin Regular 300 UNITS/3 ML VIAL SC SCH ×2 (07:55→17:44)
[2022-03-04] MEDS: NPH, Human Insulin Isophane 300 UNIT/3 ML VIAL SC SCH ×2 (08:05→17:45)
[2022-03-04] MEDS: HumaLOG 300 UNITS/3 ML VIAL SC PRN (08:05)
[2022-03-04] MEDS: HYDROcodone/Acetaminophen 10/325 mg Tablet PO PRN ×3 (08:46→17:45)
[2022-03-04] MEDS: levETIRAcetam 500 MG TAB PO SCH ×2 (08:48→20:44)
[2022-03-04] MEDS: Hydroxychloroquine Sulfate 200 MG TAB PO SCH ×2 (08:48→20:44)
[2022-03-04] MEDS: predniSONE 20 MG TAB PO SCH (08:48)
[2022-03-04] MEDS: Potassium Chloride 20 MEQ TAB PO SCH (08:48)
[2022-03-04] MEDS: Furosemide 40 MG TAB PO SCH (08:49)
[2022-03-04] MEDS: Mycophenolate 250 MG CAP PO SCH ×2 (08:49→20:44)
[2022-03-04] MEDS: Enoxaparin Sodium 120 MG/0.8 ML SYRINGE SC SCH ×2 (08:49→20:44)
[2022-03-04] MEDS: Methocarbamol 500 MG TAB PO SCH ×3 (10:25→21:53)
[2022-03-04 15:02] LABS: BF Color Pink; Body Fluid Source Synovial Fluid; Clarity Hazy (Clear); Tube # EDTA
[2022-03-04 16:05] LABS: BF Segmented Neutrophils 50 %; Cell Count Non Hematic 20 %; Lymphocytes 30 %
[2022-03-04] MEDS ORDERED: Warfarin Sodium 10 MG TAB PO SCH (17:00)
[2022-03-04] MEDS: Ondansetron ODT 4 MG TAB PO PRN (18:36)
[2022-03-04 19:38] LABS: Synovial Fluid, Glucose 170 mg/dL (Not Available); Synovial Fluid, Protein Less than 1.0 g/dL (Not Available)
[2022-03-04] MEDS: Atorvastatin Calcium 40 MG TAB PO SCH (20:45)
[2022-03-05] MEDS: Cefepime 2 GM in Sodium Chloride 0.9% 100 ML IVPB SCH ×2 (01:20→14:59)
[2022-03-05] MEDS: HYDROcodone/Acetaminophen 10/325 mg Tablet PO PRN ×3 (02:51→22:05)
[2022-03-05] MEDS: Ondansetron ODT 4 MG TAB PO PRN ×2 (02:56→22:04)
[2022-03-05] MEDS: Morphine 2 MG/ML VIAL SLOW IVP PRN (04:58)
[2022-03-05] MEDS: Acetaminophen 325 MG TAB PO PRN (04:59)
[2022-03-05 05:23] LABS: #Neutrophils 9.4 10x3/uL (1.5-8.4); %Basophils 0.1 % (0.0-2.0); %Eosinophils 0.1 % (0.0-6.0); %Lymphocytes 6.5 % (18.0-47.0); %Monocytes 8.6 % (0.0-10.0); %Neutrophils 83.2 % (40.0-75.0); Mean Corpuscular HGB CONC 31.4 g/dL (32.0-36.0); Mean Corpuscular Hemoglobin 28.8 pg (27.0-33.0); Mean Corpuscular Volume 91.7 fl (81.2-95.1); Mean Platelet Volume 10.8 fl (7.4-10.4); Platelet Count 212 10x3/uL (150-450); RBC Distribution Width 14.5 % (11.5-14.5); Red Blood Cell (RBC) Count 3.13 10x6/uL (4.32-5.72); White Blood Cell (WBC) Count 11.3 10x3/uL (3.5-10.5)
[2022-03-05 05:30] LABS: INR-International Normal Ratio 1.9; Prothrombin Time 20.3 sec (9.5-12.1)
[2022-03-05 05:31] LABS: Anion Gap 12 mmol/L (10-20); BUN (Urea Nitrogen) 20 mg/dL (8.9-20.6); Calc. Creatinine Clearance 95 mL/min (70-130); Calcium 8.6 mg/dL (7.8-10.44); Carbon Dioxide 25 mmol/L (22-29); Chloride 104 mmol/L (98-107); Estimated GFR 54; Glucose 119 mg/dL (70-105); Potassium 4.5 mmol/L (3.5-5.1); Sodium 136 mmol/L (136-145)
[2022-03-05] MEDS: Potassium Chloride 20 MEQ TAB PO SCH (07:54)
[2022-03-05] MEDS: predniSONE 20 MG TAB PO SCH (07:55)
[2022-03-05] MEDS: Enoxaparin Sodium 120 MG/0.8 ML SYRINGE SC SCH ×2 (07:55→21:41)
[2022-03-05] MEDS: Insulin Regular 300 UNITS/3 ML VIAL SC SCH ×2 (07:56→16:37)
[2022-03-05] MEDS: Hydroxychloroquine Sulfate 200 MG TAB PO SCH ×2 (07:56→21:40)
[2022-03-05] MEDS: Furosemide 40 MG TAB PO SCH (07:56)
[2022-03-05] MEDS: Mycophenolate 250 MG CAP PO SCH ×2 (07:56→21:40)
[2022-03-05] MEDS: NPH, Human Insulin Isophane 300 UNIT/3 ML VIAL SC SCH ×2 (07:57→16:37)
[2022-03-05] MEDS: levETIRAcetam 500 MG TAB PO SCH ×2 (07:59→21:41)
[2022-03-05] MEDS: Methocarbamol 500 MG TAB PO SCH ×3 (09:47→22:05)
[2022-03-05] MEDS ORDERED: Polyethylene Glycol 3350 17 GM Packet PO PRN (10:32)
[2022-03-05] MEDS ORDERED: Docusate 100 MG CAP PO PRN (10:32)
[2022-03-05] MEDS ORDERED: Polyethylene Glycol 3350 17 GM Packet PO SCH (15:00)
[2022-03-05] MEDS ORDERED: Docusate 100 MG CAP PO SCH (15:00)
[2022-03-05] MEDS ORDERED: Warfarin Sodium 5 MG TAB PO SCH (17:00)
[2022-03-05] MEDS ORDERED: Warfarin Sodium 7.5 MG TAB PO SCH (17:00)
[2022-03-05] MEDS: Atorvastatin Calcium 40 MG TAB PO SCH (21:40)
[2022-03-05] MEDS: Sodium Chloride 0.9% 1,000 ML IV SCH (22:13)
[2022-03-06] MEDS: Morphine 2 MG/ML VIAL SLOW IVP PRN ×2 (00:38→10:46)
[2022-03-06] MEDS: Cefepime 2 GM in Sodium Chloride 0.9% 100 ML IVPB SCH ×2 (01:30→13:55)
[2022-03-06] MEDS: Sodium Chloride 0.9% 1,000 ML IV SCH (06:10)
[2022-03-06 06:50] LABS: #Neutrophils 5.2 10x3/uL (1.5-8.4); %Basophils 0.3 % (0.0-2.0); %Eosinophils 0.1 % (0.0-6.0); %Lymphocytes 13.3 % (18.0-47.0); %Monocytes 13.4 % (0.0-10.0); %Neutrophils 71.5 % (40.0-75.0); Hemoglobin 9.5 g/dL (13.5-17.5); Mean Corpuscular Hemoglobin 28.5 pg (27.0-33.0); Mean Corpuscular Volume 91.9 fl (81.2-95.1); Mean Platelet Volume 10.6 fl (7.4-10.4); Platelet Count 253 10x3/uL (150-450); RBC Distribution Width 14.6 % (11.5-14.5); Red Blood Cell (RBC) Count 3.33 10x6/uL (4.32-5.72); White Blood Cell (WBC) Count 7.3 10x3/uL (3.5-10.5)
[2022-03-06 06:51] LABS: Chloride 103 mmol/L (98-107); Potassium 4.6 mmol/L (3.5-5.1); Sodium 137 mmol/L (136-145)
[2022-03-06 06:52] LABS: Anion Gap 14 mmol/L (10-20); BUN (Urea Nitrogen) 22 mg/dL (8.9-20.6); Calc. Creatinine Clearance 104 mL/min (70-130); Carbon Dioxide 25 mmol/L (22-29); Estimated GFR 61
[2022-03-06 06:53] LABS: Calcium 8.7 mg/dL (7.8-10.44); Glucose 102 mg/dL (70-105)
[2022-03-06] MEDS: Mycophenolate 250 MG CAP PO SCH (08:45)
[2022-03-06] MEDS: Insulin Regular 300 UNITS/3 ML VIAL SC SCH ×2 (08:45→17:14)
[2022-03-06] MEDS: NPH, Human Insulin Isophane 300 UNIT/3 ML VIAL SC SCH ×2 (08:45→17:14)
[2022-03-06] MEDS: Hydroxychloroquine Sulfate 200 MG TAB PO SCH (08:46)
[2022-03-06] MEDS: levETIRAcetam 500 MG TAB PO SCH (08:46)
[2022-03-06] MEDS: Methocarbamol 500 MG TAB PO SCH ×2 (08:46→17:13)
[2022-03-06] MEDS: HYDROcodone/Acetaminophen 10/325 mg Tablet PO PRN ×2 (08:46→17:13)
[2022-03-06] MEDS: predniSONE 20 MG TAB PO SCH (08:46)
[2022-03-06] MEDS: Enoxaparin Sodium 120 MG/0.8 ML SYRINGE SC SCH (08:47)
[2022-03-06 09:59] LABS: INR-International Normal Ratio 3.3; Prothrombin Time 33.3 sec (9.5-12.1)
[2022-03-06 16:04] VITALS: BP 128/75; TEMP 99.2
[2022-03-06] MEDS ORDERED: Warfarin Sodium 2.5 MG TAB PO SCH (17:00)
== END 2022-03-06 17:54 | DRG 872 ==
LOC: CSHERS 02:00 → CSHERHOLD 04:55 → EEVIPCON 04:55 → CSHTELE 15:01
PROVIDERS: ADMIT Student in an Organized Health Care Education/Training Program; ATTEND Internal Medicine
PROC: 3E03329 Introduction of Other Anti-infective into Peripheral Vein, Percutaneous Approach (ICD-10-PCS; principal; 2022-03-02)
PROC: 0S9D3ZZ Drainage of Left Knee Joint, Percutaneous Approach (ICD-10-PCS; 2022-03-04)
DX: A41.9 Sepsis, unspecified organism (principal); L03.116 Cellulitis of left lower limb; N17.9 Acute kidney failure, unspecified; I69.354 Hemiplegia and hemiparesis following cerebral infarction affecting left non-dominant side; Z20.822 Contact with and (suspected) exposure to COVID-19; N18.2 Chronic kidney disease, stage 2 (mild); E87.6 Hypokalemia; I89.0 Lymphedema, not elsewhere classified; R65.20 Severe sepsis without septic shock; M32.9 Systemic lupus erythematosus, unspecified; E78.5 Hyperlipidemia, unspecified; E83.42 Hypomagnesemia; M25.462 Effusion, left knee; I12.9 Hypertensive chronic kidney disease with stage 1 through stage 4 chronic kidney disease, or unspecified chronic kidney disease; G40.909 Epilepsy, unspecified, not intractable, without status epilepticus; F32.A Depression, unspecified; E03.9 Hypothyroidism, unspecified; Z86.711 Personal history of pulmonary embolism; Z86.718 Personal history of other venous thrombosis and embolism; Z79.01 Long term (current) use of anticoagulants; Z91.041 Radiographic dye allergy status; Z91.010 Allergy to peanuts; Z79.899 Other long term (current) drug therapy; Z87.891 Personal history of nicotine dependence; Z91.018 Allergy to other foods
CPT/HCPCS: 36415; 36416; 71045; 80048; 80053; 82945; 83605; 83735; 84157; 85025; 85379; 85610; 87040; 87070; 87205; 89051; 89060; 93005; 93010; 94760; 96361; 96365; 96366; 96367; 96372; 96375; 97139; J0692; J1650; J1815; J1885; J2270; J2405; J2550; J3370; J3475; J3490; J7030; J7050; J7512; J7517; Q0162; U0002